=== PATIENT | female | born 1980 | race Caucasian/White ===

== ENCOUNTER 2018-07-17 10:40 | Emergency (ER) | payer OTHER ==
--- NOTE | 2018-07-17 11:19 | EDPHYS ---
Physician Documentation [facility] Name: Geovanna Washington Age: 37 yrs Sex: Female : 1980 Arrival Date: 07/17/2018 Time: 10:42 Bed 14 Private MD: None, None ED Physician Dillan Lance HPI: 07/17 11:21 This 37 yrs old Female presents to ER via Ambulatory with complaints of Back snw Pain. 11:21 The patient presents with pain that is acute, with no known mechanism of injury. The snw symptoms are located in the low back. Onset: The symptoms/episode began/occurred suddenly, yesterday. The pain radiates to the right hip/buttock. The problem was sustained when bending over. Severity of symptoms: At their worst the symptoms were moderate. The patient has experienced a previous episode. The patient has not recently seen a physician. 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 - Social history:: Smoking status: Patient/guardian denies using tobacco. - Ebola Screening: : No symptoms or risks identified at this time. ROS: 11:20 Constitutional: Negative for fever, chills, and weight loss, Eyes: Negative for injury, snw pain, redness, and discharge, ENT: Negative for injury, pain, and discharge, Neck: Negative for injury, pain, and swelling, Cardiovascular: Negative for chest pain, palpitations, and edema, Respiratory: Negative for shortness of breath, cough, wheezing, and pleuritic chest pain, Abdomen/GI: Negative for abdominal pain, nausea, vomiting, diarrhea, and constipation, Back: Negative for injury, positive for severe right and low back pain, : Negative for injury, bleeding, discharge, and swelling, MS/Extremity: Negative for injury and deformity, Skin: Negative for injury, rash, and discoloration, Neuro: Negative for headache, weakness, numbness, tingling, and seizure. Exam: 11:19 Constitutional: This is a well developed, well nourished patient who is awake, alert, snw and in no acute distress. Head/Face: Normocephalic, atraumatic. Eyes: Pupils equal round and reactive to light, extra-ocular motions intact. Lids and lashes normal. Conjunctiva and sclera are non-icteric and not injected. Cornea within normal limits. Periorbital areas with no swelling, redness, or edema. ENT: Nares patent. No nasal discharge, no septal abnormalities noted. Tympanic membranes are normal and external auditory canals are clear. Oropharynx with no redness, swelling, or masses, exudates, or evidence of obstruction, uvula midline. Mucous membranes moist. Neck: Trachea midline, no thyromegaly or masses palpated, and no cervical lymphadenopathy. Supple, full range of motion without nuchal rigidity, or vertebral point tenderness. No Meningismus. Chest/axilla: Normal chest wall appearance and motion. Nontender with no deformity. No lesions are appreciated. Cardiovascular: Regular rate and rhythm with a normal S1 and S2. No gallops, murmurs, or rubs. Normal PMI, no JVD. No pulse deficits. Respiratory: Lungs have equal breath sounds bilaterally, clear to auscultation and percussion. No rales, rhonchi or wheezes noted. No increased work of breathing, no retractions or nasal flaring. Abdomen/GI: Soft, non-tender, with normal bowel sounds. No distension or tympany. No guarding or rebound. No evidence of tenderness throughout. Skin: Warm, dry with normal turgor. Normal color with no rashes, no lesions, and no evidence of cellulitis. MS/ Extremity: Pulses equal, no cyanosis. Neurovascular intact. Full, normal range of motion. Neuro: Awake and alert, GCS 15, oriented to person, place, time, and situation. Cranial nerves II-XII grossly intact. Motor strength 5/5 in all extremities. Sensory grossly intact. Cerebellar exam normal. Normal gait. Psych: Awake, alert, with orientation to person, place and time. Behavior, mood, and affect are within normal limits. 11:19 Back: pain, that is moderate, of the lumbar area and right low back, ROM is painful, normal spinal alignment noted, CVA tenderness, is absent. Vital Signs: 11:07 BP 167 / 99; Pulse 88; Resp 16; Temp 99; Pulse Ox 100% on R/A; Pain 8/10; hb 12:04 BP 135 / 83; Pulse 82; Resp 17; Pulse Ox 99% on R/A; mh5 MDM: 11:09 Patient medically screened. snw 11:22 Data reviewed: vital signs, nurses notes. Data interpreted: Pulse oximetry: on room air snw is 100 %. Interpretation: normal. Counseling: I had a detailed discussion with the patient and/or guardian regarding: the historical points, exam findings, and any diagnostic results supporting the discharge/admit diagnosis, the presence of at least one elevated blood pressure reading (>120/80) during this emergency department visit, lab results, the need for outpatient follow up, to return to the emergency department if symptoms worsen or persist or if there are any questions or concerns that arise at home. Special discussion: I have referred the patient to see his PCP for further evaluation of high blood pressure. Based on the history and exam findings, there is no indication for further emergent testing or inpatient evaluation. I discussed with the patient/guardian the need to see the primary care provider for further evaluation of the symptoms. 07/17 11:05 Order name: Urine Culture snw 07/17 11:05 Order name: Urine Microscopic Only; Complete Time: 12:06 snw 07/17 11:05 Order name: Urine Test (obtain specimen); Complete Time: 11:33 snw 07/17 11:05 Order name: Urine Dipstick-Ancillary (obtain specimen); Complete Time: 11:33 snw Administered Medications: 11:30 Drug: TORadol 60 mg Route: IM; Site: right gluteus; bp 12:00 Follow up: Response: Pain is decreased bp 11:30 Drug: Valium 2 mg Route: PO; bp 11:59 Follow up: Response: Pain is decreased bp 12:09 Not Given (PT D/C PRIOR TO ORDER): Macrobid 100 mg PO once; administer with food bp Disposition: 18:50 Co-signature as Attending Physician, Dillan Lance MD Available for consultation at ps1 all times . Disposition: 07/17/18 11:18 Discharged to Home. Impression: Low back pain, Radiculopathy, lumbar region, Urinary tract infection, site not specified. - Condition is Stable. - Discharge Instructions: Back Pain, Adult, Hypertension, Lumbosacral Radiculopathy, Musculoskeletal Pain, Urinary Tract Infection, Adult, Back Exercises, Mtys-da-Nlzz, Cryotherapy, Rehydration, Adult, Heat Therapy. - Prescriptions for Diclofenac Sodium 75 mg Oral Tablet Sustained Release - take 1 tablet by ORAL route 2 times per day; 30 tablet. orphenadrine citrate 100 mg Oral Tablet Sustained Release - take 1 tablet by ORAL route 2 times per day As needed; 20 tablet. Macrobid 100 mg Oral Capsule - take 1 capsule by ORAL route every 12 hours for 10 days; 20 capsule. - Work release form, Medication Reconciliation Form, Thank You Letter, Antibiotic Education, Prescription Opioid Use form. - Follow up: Private Physician; When: 5 - 6 days; Reason: Recheck today's complaints, Continuance of care, Re-evaluation by your physician. Follow up: Emergency Department; When: As needed; Reason: Worsening of condition. Signatures: Dispatcher [employer] EDMS Emelina Barbosa FNP-C LEGISLATIVE CORRESPONDENT-Csnw Arabella Power RN RN Alex Charles RN RN bp Singer, Phillip, MD MD ps1 Corrections: (The following items were deleted from the chart) 12:07 11:18 07/17/2018 11:18 Discharged to Home. Impression: Low back pain; Radiculopathy, snw lumbar region. Condition is Stable. Forms are Medication Reconciliation Form, Thank You Letter, Antibiotic Education, Prescription Opioid Use. Follow up: Private Physician; When: 5 - 6 days; Reason: Recheck today's complaints, Continuance of care, Re-evaluation by your physician. Follow up: Emergency Department; When: As needed; Reason: Worsening of condition. snw 12:11 12:07 07/17/2018 11:18 Discharged to Home. Impression: Low back pain; Radiculopathy, bp lumbar region; Urinary tract infection, site not specified. Condition is Stable. Discharge Instructions: Back Pain, Adult, Hypertension, Lumbosacral Radiculopathy, Musculoskeletal Pain, Back Exercises, Doee-lm-Pull, Cryotherapy, Rehydration, Adult, Heat Therapy. Prescriptions for Diclofenac Sodium 75 mg Oral Tablet Sustained Release - take 1 tablet by ORAL route 2 times per day; 30 tablet, orphenadrine citrate 100 mg Oral Tablet Sustained Release - take 1 tablet by ORAL route 2 times per day As needed; 20 tablet. and Forms are Medication Reconciliation Form, Thank You Letter, Antibiotic Education, Prescription Opioid Use, Work release form. Follow up: Private Physician; When: 5 - 6 days; Reason: Recheck today's complaints, Continuance of care, Re-evaluation by your physician. Follow up: Emergency Department; When: As needed; Reason: Worsening of condition. snw
--- NOTE | 2018-07-17 11:19 | ER ---
Nurse's Notes [facility] Name: Geovanna Washington Age: 37 yrs Sex: Female : 1980 Arrival Date: 07/17/2018 Time: 10:42 Bed 14 Private MD: None, None Diagnosis: Low back pain;Radiculopathy, lumbar region;Urinary tract infection, site not specified Presentation: 07/17 11:04 Presenting complaint: Patient states: Right sided low back pain after bending over to pickle maker cotton ball yesterday. Transition of care: patient was not received from another setting of care. Onset of symptoms was July 16, 2018. Risk Assessment: Do you want to hurt yourself or someone else? Patient reports no desire to harm self or others. Care prior to arrival: None. 11:04 Method Of Arrival: Ambulatory 11:04 Acuity: NURY 4 12:00 Initial Sepsis Screen: Does the patient meet any 2 criteria? No. Patient's initial bp sepsis screen is negative. Does the patient have a suspected source of infection? No. Patient's initial sepsis screen is negative. Triage Assessment: 11:23 General: Appears in no apparent distress. uncomfortable, obese, Behavior is bp cooperative, appropriate for age, anxious. Pain: Complains of pain in lumbar area. EENT: No deficits noted. Neuro: Level of Consciousness is awake, alert, obeys commands, Oriented to person, place, time, situation, Appropriate for age. Cardiovascular: No deficits noted. Respiratory: No deficits noted. GI: No signs and/or symptoms were reported involving the gastrointestinal system. : No signs and/or symptoms were reported regarding the genitourinary system. Derm: No deficits noted. Musculoskeletal: Circulation, motion, and sensation intact. Range of motion: intact in all extremities. OR SCRUB TECH: 11:07 LMP 07/02/2018 hb Historical: - Allergies: 11:08 PENICILLINS; hb - Home Meds: 11:08 None [Active]; hb - PMHx: 11:08 None; hb - PSHx: 11:08 None; hb - Immunization history:: Adult Immunizations up to date. - Social history:: Smoking status: Patient/guardian denies using tobacco. - Ebola Screening: : No symptoms or risks identified at this time. Screenin:08 Abuse screen: Denies threats or abuse. Denies injuries from another. Nutritional hb screening: No deficits noted. Tuberculosis screening: No symptoms or risk factors identified. Fall Risk None identified. Assessment: 11:24 General: SEE TRIAGE NOTE. Neuro: Level of Consciousness is awake, alert, obeys bp commands, Oriented to person, place, time, situation, Appropriate for age Gait is steady. Vital Signs: 11:07 BP 167 / 99; Pulse 88; Resp 16; Temp 99; Pulse Ox 100% on R/A; Pain 8/10; hb 12:04 BP 135 / 83; Pulse 82; Resp 17; Pulse Ox 99% on R/A; mh5 ED Course: 10:42 Patient arrived in ED. mr 10:42 None, None is Private Physician. mr 11:07 Triage completed. hb 11:08 Emelina Barbosa [facility]C [facility]. snw 11:08 Dillan Lance MD is Attending Physician. snw 11:08 Arm band placed on right wrist. hb 11:16 Alex Rene, MIRANDA is Primary Nurse. bp 11:24 Patient has correct armband on for positive identification. Bed in low position. Call bp light in reach. Side rails up X2. 11:33 Urine Culture Sent. 5 11:33 Urine Microscopic Only Sent. 5 11:33 Urine collected: clean catch specimen, cloudy. mh5 12:00 No provider procedures requiring assistance completed. Patient did not have IV access bp during this emergency room visit. Administered Medications: 11:30 Drug: TORadol 60 mg Route: IM; Site: right gluteus; bp 12:00 Follow up: Response: Pain is decreased bp 11:30 Drug: Valium 2 mg Route: PO; bp 11:59 Follow up: Response: Pain is decreased bp 12:09 Not Given (PT D/C PRIOR TO ORDER): Macrobid 100 mg PO once; administer with food bp Outcome: 11:18 Discharge ordered by . snw 11:50 Discharged to home ambulatory, with family. bp 11:50 Condition: stable 11:50 Discharge instructions given to patient, Instructed on discharge instructions, follow up and referral plans. medication usage, Demonstrated understanding of instructions, follow-up care, medications, Prescriptions given X 2. 12:11 Patient left the ED. bp Signatures: Emelina Barbosa FNP-C FLORAL DESIGNER SALESPERSON-Csnw [place]annan Heather, RN RN Edelmira [facility] Alex eRne, RN RN bp
[2018-07-17] MEDS ORDERED: KETOROLAC 30 MG/ML INJ ONE (11:30)
[2018-07-17] MEDS ORDERED: DIAZEPAM 2 MG TABLET ONE (11:30)
[2018-07-17 12:01] LABS: Urine Bacteria 20-50 /HPF (<20); Urine Culture Reflex Order REFLEXED
== END 2018-07-17 12:11 | disposition home or self-care (01) ==
LOC: ER 10:40
DX: M54.16 Radiculopathy, lumbar region (principal); N39.0 Urinary tract infection, site not specified
CPT/HCPCS: 81015; 87086; 87088; 96372; 99283

== ENCOUNTER 2023-02-02 09:11 | Emergency (ER) | payer OTHER ==
--- OUTSIDE RECORDS SUMMARY | 2023-02-02 09:14 | XMS REPORT | Continuity of Care Document ---
:1980 Author Organization [facility] t Address [address] [place] [address] Care Team Providers Name Role Phone Unavailable Unavailable Unavailable Problems This patient has no known problems. Allergies, Adverse Reactions, Alerts This patient has no known allergies or adverse reactions. Medications This patient has no known medications. Procedures This patient has no known procedures. Encounters Start End Encounter Admission Attending Care Care Encounter Source Date/Time Date/Time Type Type Clinicians Facility Department ID 2022-10-29 Outpatient [facility] [id number] Common 09:26:03 [id number] [facility] Results This patient has no known results.
[2023-02-02] MEDS ORDERED: KETOROLAC 30 MG/ML INJ ONE (09:51)
--- NOTE | 2023-02-02 11:12 | RAD REPORT ---
EXAM DESCRIPTION: US - UPPER EXTREMITY VENOUS UNILATE - 02/02/2023 10:18 am CLINICAL HISTORY: Swelling COMPARISON: None. TECHNIQUE: Real-time sonographic evaluation of the left upper extremity deep venous system was perfo rmed. FINDINGS: Noncompressible radial veins, with no demonstrable flow. Normal compressibility, flow augm entation, phasic flow and spontaneous flow is identified throughout the remainder of the left upper e xtremity deep venous system. No intraluminal filling defects seen. Noncompressible distended basilic vein with acute appearing thrombus. IMPRESSION: Findings suggestive of acute deep venous thrombosis of the left radial veins. Superficial thrombophlebitis of the basilic vein. The findings were communicated to Jamar Granado on 02/02/2023 at 10:45 hours, by the glass technologist karl.
--- NOTE | 2023-02-02 11:23 | ER ---
Nurse's Notes [facility] Name: Geovanna Washington Age: 42 yrs Sex: Female : 1980 Arrival Date: 02/02/2023 Time: 09:11 Bed 13 Private MD: Diagnosis: Acute embolism and thrombosis of deep veins of left upper extremity;Phlebitis and thrombophlebitis of other sites Presentation: 02/02 09:18 Chief complaint: Patient states: SENT BY PCP FOR R/O LUE DVT, 2 WK EDEMA AND ERYTHEMA. bp Coronavirus screen: At this time, the client does not indicate any symptoms associated with coronavirus-19. Ebola Screen: No symptoms or risks identified at this time. Initial Sepsis Screen: Does the patient meet any 2 criteria? HR > 90 bpm. No. Patient's initial sepsis screen is negative. Does the patient have a suspected source of infection? No. Patient's initial sepsis screen is negative. Risk Assessment: Do you want to hurt yourself or someone else? Patient reports no desire to harm self or others. Onset of symptoms is unknown. 09:18 Method Of Arrival: Ambulatory bp 09:18 Acuity: NURY 3 bp Triage Assessment: 09:19 General: Appears in no apparent distress. Behavior is cooperative, appropriate for age, bp anxious. Pain: Complains of pain in left bicep. EENT: No deficits noted. Neuro: No deficits noted. Cardiovascular: No deficits noted. Respiratory: No deficits noted. GI: No signs and/or symptoms were reported involving the gastrointestinal system. : No signs and/or symptoms were reported regarding the genitourinary system. Derm: No deficits noted. Musculoskeletal: No deficits noted. 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 - Social history:: Smoking status: Patient denies any tobacco usage or history of. Screenin:54 [facility] ED Fall Risk Assessment (Adult) History of falling in the last 3 months, ko1 including since admission No falls in past 3 months (0 pts) Confusion or Disorientation No (0 pts) Intoxicated or Sedated No (0 pts) Impaired Gait No (0 pts) Mobility Assist Device Used No (0 pt) Altered Elimination No (0 pt) Score/Fall Risk Level 0 - 2 = Low Risk Oriented to surroundings, Maintained a safe environment, Educated pt \T\ family on fall prevention, incl call for assistance when getting out of bed, Assessed \T\ reinforced patient's understanding of fall precautions, Provided non-skid footwear, Hourly rounding (assess needs \T\ fall precautionary measures) done, Used ambulatory aids as needed (educated on \T\ assisted with), Used gait belt as appropriate. Abuse screen: Denies threats or abuse. Denies injuries from another. Nutritional screening: No deficits noted. Tuberculosis screening: No symptoms or risk factors identified. Assessment: 09:54 General: Appears in no apparent distress. uncomfortable, Behavior is calm, cooperative, ko1 appropriate for age. Pain: Complains of pain in left arm and left bicep. Neuro: No deficits noted. Cardiovascular: No deficits noted. Respiratory: No deficits noted. GI: No deficits noted. : No deficits noted. EENT: No deficits noted. Derm: No deficits noted. Musculoskeletal: Reports pain in left arm and left bicep. Vital Signs: 09:18 BP 160 / 109; Pulse 118; Resp 16; Temp 98.5; Pulse Ox 100% ; Weight 106.59 kg; Height 5 bp ft. 5 in. ; 11:27 BP 158 / 92; Pulse 104; Resp 16; Pulse Ox 99% ; ko1 09:18 Body Mass Index 39.11 (106.59 kg, 165.1 cm) bp ED Course: 09:13 Patient arrived in ED. rg4 09:16 Melanie Modi PA-C is PHCP. sb4 09:16 Jamar Granado MD is Attending Physician. sb4 09:19 Triage completed. bp 09:19 Arm band placed on. bp 09:41 Krysta Plummer, MIRANDA is Primary Nurse. ko1 09:54 Patient has correct armband on for positive identification. Bed in low position. Call ko1 light in reach. Side rails up X 1. Provided Education on: ultrasound. 10:19 UPPER EXTREMITY VENOUS UNILATE In Process Unspecified. EDMS 11:27 Extremity Venous Uni Ltd US Sent. sb4 11:27 No provider procedures requiring assistance completed. Patient did not have IV access ko1 during this emergency room visit. Administered Medications: 09:45 Drug: Ketorolac IM 30 mg Route: IM; Site: right deltoid; ko1 11:26 Drug: Eliquis PO 10 mg Route: PO; ko1 Medication: 09:54 VIS not applicable for this client. ko1 Outcome: 11:23 Discharge ordered by . [email or web address] 11:28 Discharged to home ambulatory. ko1 11:28 Condition: stable 11:28 Discharge instructions given to patient, Instructed on discharge instructions, follow up and referral plans. medication usage, Demonstrated understanding of instructions, follow-up care, medications, Prescriptions given X 1. 11:34 Patient left the ED. ko1 Signatures: Dispatcher [employer] EDMS Betzaida Greco rg4 Alex Rene, RN RN Krysta Baig RN RN ko1 Melanie Modi PA-C PARea sb4
--- NOTE | 2023-02-02 11:23 | EDPHYS ---
Physician Documentation [facility] Name: Geovanna Washington Age: 42 yrs Sex: Female : 1980 Arrival Date: 02/02/2023 Time: 09:11 Bed 13 Private MD: ED Physician Jamar Granado HPI: 02/02 10:11 This 42 yrs old Female presents to ER via Ambulatory with complaints of Arm Pain. sb4 10:11 The patient or guardian complains of pain, swelling, tenderness. The complaints affect sb4 the left bicep. Context: The problem was sustained at a doctor's office, resulted from blood draw. Onset: The symptoms/episode began/occurred 2 week(s) ago. Treatment prior to arrival includes: over the counter medications. 42 year old female with history of factor V deficiency and hypertension who presents with 2 weeks of increased pain, redness, and swelling in LUE. She states that she had blood drawn from her left AC about 2 weeks ago and ever since noticed a "knot" at the puncture site then her arm has become more red, swollen, and tender gradually. She went to her PCP today who sent her here for ultrasound. She denies any person history of blood clots, but several family members have. She denies any fever, chest pain, shortness of breath. 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 - Social history:: Smoking status: Patient denies any tobacco usage or history of. ROS: 10:11 Constitutional: Negative for fever, chills, and weight loss, Eyes: Negative for injury, sb4 pain, redness, and discharge, Cardiovascular: Negative for chest pain, palpitations, and edema, Respiratory: Negative for shortness of breath, cough, wheezing, and pleuritic chest pain, Back: Negative for injury and pain. 10:11 MS/extremity: Positive for erythema, pain, tenderness, warmth, of the left arm. 10:11 All other systems are negative. Exam: 10:11 Constitutional: This is a well developed, well nourished patient who is awake, alert, sb4 and in no acute distress. Head/Face: Normocephalic, atraumatic. Cardiovascular: Regular rate and rhythm with a normal S1 and S2. Respiratory: Lungs have equal breath sounds bilaterally, clear to auscultation and percussion. No rales, rhonchi or wheezes noted. No increased work of breathing, no retractions or nasal flaring. Abdomen/GI: Soft, non-tender, no distension. Neuro: Awake and alert, GCS 15, oriented to person, place, time, and situation. Cranial nerves II-XII grossly intact. Motor strength 5/5 in all extremities. Sensory grossly intact. Cerebellar exam normal. Normal gait. 10:11 Musculoskeletal/extremity: DVT Exam: pain, swelling, tenderness, erythema, increased warmth, of the left arm. Vital Signs: 09:18 BP 160 / 109; Pulse 118; Resp 16; Temp 98.5; Pulse Ox 100% ; Weight 106.59 kg; Height 5 bp ft. 5 in. ; 11:27 BP 158 / 92; Pulse 104; Resp 16; Pulse Ox 99% ; ko1 09:18 Body Mass Index 39.11 (106.59 kg, 165.1 cm) bp MDM: 09:16 Patient medically screened. sb4 10:11 Differential diagnosis: DVT, PE, thromboplebitis, cellulitus. sb4 11:20 Data reviewed: vital signs, nurses notes, radiologic studies, ultrasound, I have sb4 discussed the patient's presentation/case with the attending Emergency Department Physician; and as a result, I will discharge patient. Test considered but Not performed: CT: CTA chest, however patient is not short of breath and denies any chest pain, well appearing. Care significantly affected by the following chronic conditions: Factor V Deficiency. Counseling: I had a detailed discussion with the patient and/or guardian regarding: the historical points, exam findings, and any diagnostic results supporting the discharge/admit diagnosis, radiology results, the need for outpatient follow up, to return to the emergency department if symptoms worsen or persist or if there are any questions or concerns that arise at home. 02/02 09:28 Order name: Extremity Venous Uni Ltd US; Complete Time: 11:27 sb4 02/02 09:32 Order name: UPPER EXTREMITY VENOUS UNILATE; Complete Time: 11:13 EDMS Administered Medications: 09:45 Drug: Ketorolac IM 30 mg Route: IM; Site: right deltoid; ko1 11:26 Drug: Eliquis PO 10 mg Route: PO; ko1 Disposition: 13:16 Co-signature as Attending Physician, Jamar Granado MD I reviewed the patient's care rn provided by the Advanced Practice Provider and agree with the diagnosis and treatment plan. Disposition Summary: 02/02/23 11:23 Discharge Ordered Location: Home sb4 Problem: new sb4 Symptoms: are unchanged sb4 Condition: Stable sb4 Diagnosis - Acute embolism and thrombosis of deep veins of left upper extremity sb4 - Phlebitis and thrombophlebitis of other sites sb4 Followup: sb4 - With: Private Physician - When: - Reason: Recheck today's complaints, Continuance of care, Re-evaluation by your physician Discharge Instructions: - Discharge Summary Sheet sb4 - Deep Vein Thrombosis sb4 - Thrombophlebitis sb4 Forms: - Medication Reconciliation Form sb4 - Thank You Letter sb4 - Antibiotic Education sb4 - Prescription Opioid Use sb4 - [email or web address] sb4 Prescriptions: - Eliquis DVT-PE Treat 30D Start 5 mg (74 tabs) Oral Tablet, Dose Pack - take 1 Pack by ORAL route per package directions; 1 Pack; Refills: 0, Product sb4 Selection Permitted Signatures: Dispatcher [employer] Jamar River MD MD rn Peltier, Brian, RN Krysta Prakash RN RN ko1 Melanie Modi PA-C PA-C sb4
[2023-02-02] MEDS ORDERED: APIXABAN 5 MG TABLET ONE (11:32)
[2023-02-02 11:46] VITALS: TEMP 98.5
[2023-02-02 11:47] VITALS: BP 158/92; O2SAT 99
== END 2023-02-02 11:34 | disposition home or self-care (01) ==
LOC: ER 09:11
DX: I82.622 Acute embolism and thrombosis of deep veins of left upper extremity (principal); I80.8 Phlebitis and thrombophlebitis of other sites; I10 Essential (primary) hypertension; Z88.0 Allergy status to penicillin
CPT/HCPCS: 93971; 96372; 99284